=== PATIENT | female | born 1965 | race African-American/Black ===

== ENCOUNTER 2017-03-17 06:41 | Day surgery (SDC) | payer OTHER ==
[~2017-03-17] VITALS: Ht 142.2 cm; Wt 46.8 kg
[~2017-03-17 06:41] MED LIST: SODIUM CHLORIDE 0.9% 1,000 ML IV ONE
[2017-03-17] MEDS ORDERED: SODIUM CHLORIDE 0.9% 1,000 ML IV ONE (07:05)
[2017-03-17] MEDS ORDERED: AUD NEB (07:36)
[2017-03-17] MEDS ORDERED: BUDE10.2 IH (07:36)
[2017-03-17] MEDS ORDERED: ALBU8.5H IH (07:36)
[2017-03-17] MEDS ORDERED: MONT10TA21 PO (07:36)
[2017-03-17] MEDS ORDERED: ROPI1TAB11 PO (07:36)
[2017-03-17] MEDS ORDERED: VITAD1000 PO (07:36)
[2017-03-17] MEDS ORDERED: FentaNYL CITRATE-PF 100 MCG/2 ML VIAL ONE (08:00)
[2017-03-17] MEDS ORDERED: MIDAZOLAM HCL 2 MG/2 ML VIAL ONE (08:00)
[2017-03-17] MEDS ORDERED: MethylPREDNISolone SOD SUCC 125 MG/2 ML VIAL IVP ONE (09:15)
[2017-03-17] MEDS ORDERED: MethylPREDNISolone SOD SUCC 125 MG/2 ML VIAL ONE (09:44)
[2017-03-17] MEDS ORDERED: BENZOCAINE 20% 50 MCG/SPRAY 57 GM ONE (17:37)
[2017-03-17] MEDS ORDERED: LIDOCAINE HCL 4% 50 ML SOLUTION ONE (17:37)
[2017-03-17] MEDS ORDERED: ALBUTEROL SULFATE 2.5 MG/0.5 ML NEB SOLUTION NEB ONE (17:37)
[2017-03-17] MEDS ORDERED: LIDOCAINE HCL 2% 30 ML JELLY ONE (17:37)
[2017-03-17] MEDS ORDERED: OXYGEN THERAPY IH SCH (20:00)
== END 2017-03-17 10:40 | disposition home or self-care (01) ==
LOC: SURGERY 06:41
PROVIDERS: ATTEND Internal Medicine Critical Care Medicine
DX: J38.4 Edema of larynx (principal); B37.0 Candidal stomatitis; J45.909 Unspecified asthma, uncomplicated; E78.00 Pure hypercholesterolemia, unspecified; M54.9 Dorsalgia, unspecified; M54.30 Sciatica, unspecified side; Z90.49 Acquired absence of other specified parts of digestive tract; Z87.01 Personal history of pneumonia (recurrent)
CPT/HCPCS: 31623; 31624; 71010; 87015 ×2; 87070; 87101; 87147; 87205; 87220; 88108; 88312; J2250; J2930; J3010; J7030

== ENCOUNTER 2017-12-27 07:00 | Day surgery (SDC) | payer OTHER ==
[~2017-12-27] VITALS: Ht 142.2 cm; Wt 50.5 kg
[~2017-12-27 07:00] MED LIST changes: +ALBU8.5H8 IH; +AUD NEB; +BUDE10.2 IH; +MONT10TA21 PO; +ROPI1TAB11 PO; +VITAD1000 PO
[2017-12-27] MEDS ORDERED: BENZOCAINE 20% 50 MCG/SPRAY 57 GM TP ONE (07:01)
[2017-12-27] MEDS ORDERED: LIDOCAINE HCL 2% 30 ML JELLY TP ONE (07:01)
[2017-12-27] MEDS ORDERED: LIDOCAINE HCL 4% 50 ML SOLUTION TP ONE (07:01)
[2017-12-27] MEDS ORDERED: ALBUTEROL SULFATE 2.5 MG/0.5 ML NEB SOLUTION NEB ONE (07:01)
[2017-12-27] MEDS ORDERED: SODIUM CHLORIDE 0.9% 1,000 ML IV ONE (07:08)
[2017-12-27] MEDS ORDERED: FentaNYL CITRATE-PF 100 MCG/2 ML VIAL ONE (08:20)
[2017-12-27] MEDS ORDERED: MIDAZOLAM HCL 2 MG/2 ML VIAL ONE (08:20)
[2017-12-27] MEDS ORDERED: MethylPREDNISolone SOD SUCC 125 MG/2 ML VIAL IVP ONE (09:00)
[2017-12-27] MEDS ORDERED: MethylPREDNISolone SOD SUCC 40 MG/ML VIAL IVP STA (09:11)
[2017-12-27] MEDS ORDERED: MethylPREDNISolone SOD SUCC 125 MG/2 ML VIAL ONE (09:17)
[2017-12-27] MEDS ORDERED: OXYGEN THERAPY IH SCH (20:00)
== END 2017-12-27 10:40 | disposition home or self-care (01) ==
LOC: SURGERY 07:00
PROVIDERS: ATTEND Internal Medicine Critical Care Medicine
DX: J38.4 Edema of larynx (principal); B37.0 Candidal stomatitis; M19.90 Unspecified osteoarthritis, unspecified site; K21.9 Gastro-esophageal reflux disease without esophagitis; J84.111 Idiopathic interstitial pneumonia, not otherwise specified; J45.998 Other asthma; E78.00 Pure hypercholesterolemia, unspecified; Z87.01 Personal history of pneumonia (recurrent); Z79.51 Long term (current) use of inhaled steroids; Z90.49 Acquired absence of other specified parts of digestive tract; Z98.41 Cataract extraction status, right eye; Z98.42 Cataract extraction status, left eye; Z98.890 Other specified postprocedural states; Z79.899 Other long term (current) drug therapy
CPT/HCPCS: 31623; 31624; 71045; 87015; 87070; 87101; 87205; 87206; 87220; 88108; 88312; J2250; J2930; J3010; J7030